=== PATIENT | female | born 1995 ===

== ENCOUNTER 2017-04-11 18:19 | Emergency (ER) | payer OTHER ==
[2017-04-11 18:28] VITALS: BMI 21.4
[2017-04-11 18:30] VITALS: RESP 18; TEMP 98.7
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
[2017-04-11] MEDS ORDERED: Sodium Chloride 0.9% 1,000 ML IV STA (18:41)
[2017-04-11 19:40] LABS: BASO # 0.02 K/mm3 (0.0-2.0); BASO % 0.2 % (0.0-3.0); EOS % 0.4 % (1.5-5.0); GRAN # 5.59 (1.4-6.5); GRAN % 69.1 % (50.0-68.0); HEMATOCRIT 42.6 % (36.0-48.0); LYMPH # 1.8 (1.2-3.4); LYMPH % 22.3 % (22.0-35.0); MEAN CELL VOLUME 92.4 fl (80.0-105.0); MEAN CORPUSCULAR HEMOGLOBIN 31.9 pg (25.0-35.0); MEAN CORPUSCULAR HGB CONC 34.5 g/dl (31.0-37.0); MEAN PLATELET VOLUME 10.4 fl (7.0-11.0); MONO # 0.7 (0.1-0.6); RED CELL DISTRIBUTION WIDTH 12.2 % (11.5-14.5); WHITE BLOOD COUNT 8.1 10^3/ul (4.5-11.0)
[2017-04-11 19:41] LABS: URINE BILIRUBIN NEGATIVE (NEGATIVE); URINE BLOOD SMALL (NEGATIVE); URINE GLUCOSE (UA) NEGATIVE (NEGATIVE); URINE KETONE 15 mg/dL (NEGATIVE); URINE LEUKOCYTE ESTERASE TRACE Leu/uL (NEGATIVE); URINE PROTEIN TRACE mg/dL (<30 mg/dL); URINE UROBILINOGEN 0.2 E.U./dL (<1 E.U./dL)
[2017-04-11 19:43] LABS: URINE APPEARANCE CLEAR (CLEAR); URINE COLOR YELLOW (YELLOW)
[2017-04-11 19:44] LABS: ALB/GLOB RATIO 1.7 (1.1-1.8); ALKALINE PHOSPHATASE 86 U/L (38-126); ALT/SGPT 31 U/L (7-56); AST/SGOT 31 U/L (14-36); BILIRUBIN,TOTAL 2.2 mg/dL (0.2-1.3); BLOOD UREA NITROGEN 15 mg/dL (7-21); CALCIUM 9.8 mg/dL (8.4-10.5); CARBON DIOXIDE 29 mmol/L (21-33); CHLORIDE 101 mmol/L (98-107); GFR AFRICAN-AMERICAN > 60; GLUCOSE,RANDOM 102 mg/dL (70-110); POTASSIUM 4.1 mmol/L (3.6-5.0); SODIUM 142 mmol/L (132-148); TOTAL PROTEIN 7.9 g/dL (5.8-8.3)
[2017-04-11] MEDS ORDERED: cefTRIAXone 1 gm 1 GM/100 ML BAG IVPB STA (19:45)
[2017-04-11 19:59] LABS: URINE BACTERIA MOD (NEG)
[2017-04-11 21:22] VITALS: BP 130/63; PULSE 61; O2SAT 99
--- NOTE | 2017-04-12 08:24 | RAD ---
HISTORY: medical clearance COMPARISON: 05/26/2016. FINDINGS: LUNGS: The lungs are well inflated and clear. PLEURA: No significant pleural effusion identified, no pneumothorax apparent. CARDIOVASCULAR: Normal. OSSEOUS STRUCTURES: No significant abnormalities. VISUALIZED UPPER ABDOMEN: Normal. OTHER FINDINGS: None. IMPRESSION: No active pulmonary disease.
== END 2017-04-11 21:10 | disposition home or self-care (01) ==
LOC: ED 18:19
DX: N39.0 Urinary tract infection, site not specified (principal); R53.83 Other fatigue; F41.9 Anxiety disorder, unspecified
CPT/HCPCS: 71010; 80053; 81001; 85025; 87086; 96365; 99285; J0696; J7040

== ENCOUNTER 2017-05-15 19:50 | Emergency (ER) | payer OTHER ==
[2017-05-15 20:04] VITALS: BMI 21.6
[2017-05-15 20:07] VITALS: BP 148/92; PULSE 98; RESP 18; TEMP 98.9; O2SAT 100
[2017-05-15 20:47] LABS: URINE BILIRUBIN NEGATIVE (NEGATIVE); URINE BLOOD NEGATIVE (NEGATIVE); URINE GLUCOSE (UA) NEGATIVE (NEGATIVE); URINE KETONE NEGATIVE (NEGATIVE); URINE LEUKOCYTE ESTERASE NEGATIVE Leu/uL (NEGATIVE); URINE PROTEIN TRACE mg/dL (<30 mg/dL)
[2017-05-15 21:02] LABS: URINE APPEARANCE CLEAR (CLEAR); URINE COLOR YELLOW (YELLOW)
[2017-05-15 21:03] LABS: URINE BACTERIA FEW (NEG); URINE RBC NEGATIVE /hpf (0-2)
[2017-05-15 21:20] LABS: BASO # 0.03 K/mm3 (0.0-2.0); BASO % 0.4 % (0.0-3.0); EOS # 0.1 (0.0-0.7); EOS % 0.7 % (1.5-5.0); GRAN # 4.96 (1.4-6.5); GRAN % 66.3 % (50.0-68.0); HEMATOCRIT 41.7 % (36.0-48.0); LYMPH # 1.9 (1.2-3.4); LYMPH % 25.5 % (22.0-35.0); MEAN CELL VOLUME 93.1 fl (80.0-105.0); MEAN CORPUSCULAR HEMOGLOBIN 31.3 pg (25.0-35.0); MEAN CORPUSCULAR HGB CONC 33.6 g/dl (31.0-37.0); MEAN PLATELET VOLUME 10.8 fl (7.0-11.0); MONO # 0.5 (0.1-0.6); MONO % 7.1 % (1.0-6.0); RED CELL DISTRIBUTION WIDTH 12.3 % (11.5-14.5); WHITE BLOOD COUNT 7.5 10^3/ul (4.5-11.0)
[2017-05-15 21:30] LABS: ALB/GLOB RATIO 1.7 (1.1-1.8); ALKALINE PHOSPHATASE 77 U/L (38-126); ALT/SGPT 41 U/L (7-56); AST/SGOT 41 U/L (14-36); BILIRUBIN,TOTAL 1.5 mg/dL (0.2-1.3); BLOOD UREA NITROGEN 10 mg/dL (7-21); CALCIUM 9.3 mg/dL (8.4-10.5); CARBON DIOXIDE 26 mmol/L (21-33); CHLORIDE 104 mmol/L (98-107); GFR AFRICAN-AMERICAN > 60; GLUCOSE,RANDOM 88 mg/dL (70-110); LIPASE 64 U/L (23-300); POTASSIUM 3.7 mmol/L (3.6-5.0); SODIUM 141 mmol/L (132-148); TOTAL PROTEIN 7.1 g/dL (5.8-8.3)
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
== END 2017-05-15 21:38 | disposition home or self-care (01) ==
LOC: ED 19:50
DX: R20.2 Paresthesia of skin (principal)

== ENCOUNTER 2017-05-26 16:13 | Inpatient (IN) | payer MEDICAID, OTHER ==
[2017-05-26 16:13] VITALS: BMI 21.6
[2017-05-26 17:25] LABS: BASO # 0.02 K/mm3 (0.0-2.0); BASO % 0.3 % (0.0-3.0); EOS # 0.1 (0.0-0.7); GRAN # 4.29 (1.4-6.5); GRAN % 68.8 % (50.0-68.0); HEMATOCRIT 38.6 % (36.0-48.0); LYMPH # 1.4 (1.2-3.4); MEAN CELL VOLUME 92.6 fl (80.0-105.0); MEAN CORPUSCULAR HEMOGLOBIN 31.2 pg (25.0-35.0); MEAN CORPUSCULAR HGB CONC 33.7 g/dl (31.0-37.0); MEAN PLATELET VOLUME 10.7 fl (7.0-11.0); MONO # 0.4 (0.1-0.6); MONO % 6.9 % (1.0-6.0); RED CELL DISTRIBUTION WIDTH 12.1 % (11.5-14.5); URINE BILIRUBIN NEGATIVE (NEGATIVE); URINE BLOOD LARGE (NEGATIVE); URINE GLUCOSE (UA) NEGATIVE (NEGATIVE); URINE KETONE NEGATIVE (NEGATIVE); URINE LEUKOCYTE ESTERASE NEGATIVE Leu/uL (NEGATIVE); URINE PROTEIN NEGATIVE mg/dL (<30 mg/dL); URINE UROBILINOGEN 0.2 E.U./dL (<1 E.U./dL); WHITE BLOOD COUNT 6.2 10^3/ul (4.5-11.0)
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
[2017-05-26 17:26] LABS: URINE APPEARANCE CLEAR (CLEAR); URINE COLOR YELLOW (YELLOW)
[2017-05-26 17:31] LABS: ALB/GLOB RATIO 1.6 (1.1-1.8); ALKALINE PHOSPHATASE 83 U/L (38-126); ALT/SGPT 29 U/L (7-56); AST/SGOT 28 U/L (14-36); BILIRUBIN,TOTAL 0.9 mg/dL (0.2-1.3); BLOOD UREA NITROGEN 11 mg/dL (7-21); CALCIUM 9.3 mg/dL (8.4-10.5); CARBON DIOXIDE 26 mmol/L (21-33); CHLORIDE 105 mmol/L (98-107); GFR AFRICAN-AMERICAN > 60; GLUCOSE,RANDOM 124 mg/dL (70-110); POTASSIUM 3.5 mmol/L (3.6-5.0); SODIUM 138 mmol/L (132-148); TOTAL PROTEIN 6.7 g/dL (5.8-8.3)
[2017-05-26 17:52] LABS: URINE BACTERIA SMALL (NEG); URINE EPITHELIAL CELLS 0 - 2 /hpf (0-5); URINE WBC 0 - 2 /hpf (0-6)
[2017-05-26] MEDS ORDERED: Potassium Chloride 20 mEq/15 ml LIQ UD PO STA (19:04)
--- NOTE | 2017-05-27 06:21 | PCM.BM ---
<Boyd Gordon - Last Filed: 05/27/17 06:18> Treatment Plan Problems - Problems identified on initial assessmt paranoid Date Initiated: 05/26/17 Time Initiated: 22:00 Assessment reference: NA Status: Active Non compliance with medications Date Initiated: 05/26/17 Assessment reference: NA Status: Active Treatment assets and liabiliti Patient Assests: ADL independent, good support system Patient Liabilities: substance abuse - Milieu Protocol Maintain good personal hygiene: daily Encourage regular showers, daily Remind patient to perform daily oral care, daily Assist patient to perform ADL's Maintain personal safety: daily Educate patient to report safety concerns to staff, daily Monitor environment for contraband/sharps Medication safety: Monitor for expected outcome, potential side effects: daily, Assess barriers to learning: daily, Assess readiness for medication education: daily Family Contact Family involvement: Family/SO is involved Family contact: Telephone contact initiated by staff Family contact name: Nick (Mother) [phone] - Goals for Treatment Patient goals for treatment: To get stabilized Discharge/Continuing Care - Education Needs Education Needs: Patient Medication, Patient Coping Skills - Discharge Discharge Criteria: Tolerates medication w/o severe side effects, Normal sleep pattern <Johnnie Tomas - Last Filed: 05/27/17 10:02> Treatment Plan Problems - Problems identified on initial assessmt Non compliance with medications Priority: 4 Agitated/Aggresive Behavior Date Initiated: 05/27/17 Time Initiated: 10:03 Status: Active Priority: 1 Ineffective Impulse Control Date Initiated: 05/27/17 Time Initiated: 10:03 Assessment reference: NA Status: Active Priority: 3 Delusions Date Initiated: 05/27/17 Time Initiated: 10:04 Assessment reference: NA Status: Active Priority: 4 Discharge/Continuing Care - Discharge Discharge Criteria: Free of paranoid thoughts, Free of agitation, Ability to care for self, No longer exhibiting s/s of withdrawal, Reduction of target symptoms <Ilda Sarmiento - Last Filed: 05/27/17 15:46> - Diagnosis (1) Schizoaffective disorder Status: Acute Interventions: 05/27/17 15:46 Psychoeducation/psychotherapy Psychopharmacology/adjustment of medications as needed/ monitoring possible side effects Evaluate pt on daily basis Compliance with medications and follow up appointments Long acting medication if pt is noncompliant with pill form Suicide and homicide risk assessment and prevention, coping strategies, safety plan Relapse prevention Reduction of symptoms Improve functional status Possible assertive community treatment Cognitive behavioral therapy Family involvement Possible social skill training as outpatient <Mariah Quevedo - Last Filed: 05/27/17 16:08> Family Contact Family involvement: Patient does not wish Family/SO involvement - Goals for Treatment Patient goals for treatment: PT requesting to be discharged.
[2017-05-27 07:55] LABS: BLOOD UREA NITROGEN 11 mg/dL (7-21); CALCIUM 9.4 mg/dL (8.4-10.5); CARBON DIOXIDE 27 mmol/L (21-33); CHLORIDE 108 mmol/L (95-110); CHOLESTEROL 110 mg/dL (130-200); GFR AFRICAN-AMERICAN > 60; GLUCOSE,RANDOM 87 mg/dL (70-110); SODIUM 140 mmol/L (132-148)
--- NOTE | 2017-05-27 08:10 | RAD ---
HISTORY: psych eval COMPARISON: 04/11/2017 FINDINGS: LUNGS: No active pulmonary disease. PLEURA: No significant pleural effusion identified, no pneumothorax apparent. CARDIOVASCULAR: Normal. OSSEOUS STRUCTURES: No significant abnormalities. VISUALIZED UPPER ABDOMEN: Normal. OTHER FINDINGS: None. IMPRESSION: No active disease. Please note: No preliminary interpretation of this examination rendered by emergency department personnel (Physician and/or PA were non-compliant in providing, as requested, preliminary report of their findings/ observations).
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
--- NOTE | 2017-05-27 22:17 | CARD ---
APPROVED REPORT EKG Measurement Heart [id number] <Conclusion> Normal sinus rhythm Rightward axis Borderline ECG
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
--- NOTE | 2017-05-29 19:27 | PCM.PYCHPN ---
Psychiatric Progress Note - Psychiatric Progress Note Patient seen today, length of contact: 30min Patient Chief Complaint: Josie Problems Identified/Issues Discussed: Chart reviewed and patient met the treatment team. Covering While patient capable of consolidated speech and thinking, appears tangential, loose with hypomania. Has some insight but also is still at risk. Diagnostic Results: Laboratory Results - last 72 hr 05/27/17 05/27/17 05/28/17 07:26 07:26 07:25 Sodium 140 Potassium 4.0 Chloride 108 Carbon Dioxide 27 Anion Gap 9 L BUN 11 Creatinine 0.7 Est GFR ( Amer) > 60 Est GFR (Non-Af Amer) > 60 Random Glucose 87 Hemoglobin A1c 5.1 Calcium 9.4 Triglycerides 56 Cholesterol 110 L LDL Cholesterol Direct 43 HDL Cholesterol 50 RPR Hepatitis A IgM Ab Negative Hep Bs Antigen Negative Hep B Core IgM Ab Negative Hepatitis C Antibody Negative HIV 1&2 Ag/Ab, 4th Gen 05/28/17 05/28/17 07:25 07:25 Sodium Potassium Chloride Carbon Dioxide Anion Gap BUN Creatinine Est GFR ( Amer) Est GFR (Non-Af Amer) Random Glucose Hemoglobin A1c Calcium Triglycerides Cholesterol LDL Cholesterol Direct HDL Cholesterol RPR Nonreactive Hepatitis A IgM Ab Hep Bs Antigen Hep B Core IgM Ab Hepatitis C Antibody HIV 1&2 Ag/Ab, 4th Gen Nonreactive DSM 5 Symptoms Update: Remains at risk. Manic. Has history of substance use and hypersexuality. Has ongoing conflict with mother. Insight marginal. Medication Change: Yes (Double Geodon dose) Medical Record Reviewed: Yes Mental Status Examination - Cognitive Function Orientation: Person, Place, Time Memory: Intact Attention: Poor Concentration: Poor Association: WNL Fund of Knowledge: WNL Decription of patient's judgement and insights: Impaired - Mood Mood: Euphoric, Other - Affect Affect: Broad, Other - Speech Speech: Pressured - Formal Thought Process Formal Thought Process: Other Psychotic Thoughts and Behaviors: Not presently - Suicidal Ideation Suicidal Ideation: No - Homicidal Ideation Homicidal Ideation: No Goal/Treatment Plan - Goal/Treatment Plan Need for Continued Stay: Remain at risks for inpatient hospitalization, Severe depression anxiety, Discharge may exacerbated symptoms, Severe functional impairment Estimated Date of D/C: 06/03/17 (we'll monitor closely)
--- NOTE | 2017-05-31 00:50 | PN ---
DATE: The patient is a 21-year-old white female who has been in a manic state. She is less manic than yesterday, but still exhibits signs of hyperactivity, and reportedly hypersexuality. She has ongoing consults with the her mother. Her insight is marginal. She is upset that I had increased her Geodon yesterday and wants me to lower the dose once again and also asking to be switched from Sonata to Ambien (I think that I have accommodated). I have cautioned or alerted the patient that her refusal to increase her dose of Geodon may prolong her hospital stay - with her being anxious to leave. She is presently on Ambien 5 mg at bedtime, Geodon 20 mg in the morning and at bedtime, Paxil 10 mg. Juice Rolle MD/ PhD
--- NOTE | 2017-05-31 19:16 | PN ---
DATE: SUBJECTIVE: The patient remains problematic in her lability including manic behavior that includes irritability and hypersexuality. Earlier, she had been insisting that I lower her medication. Presently, as she senses that we are reacting to her episodic behavioral dyscontrol, she is asking for an increase in her dose once again. I have asked for the patient to be assessed by [facility] screeners for possible involuntary hospitalization, so that the patient can be stabilized. Juice Rolle MD/ PhD
--- NOTE | 2017-06-01 16:48 | PCM.PYCHPN ---
Psychiatric Progress Note - Psychiatric Progress Note Patient seen today, length of contact: 25 min Patient Chief Complaint: "doing good" Problems Identified/Issues Discussed: I recent notes and met with patient at bedside. She remains groomed and oriented to month year location and circumstances. She seems elevated and labile , control is tenuous this morning. Reports that she's doing good and that she slept six hours last night. In general she's tolerating her medications but does report some "tingling in my hands". She denies any other new discomfort or pain. Staff notes indicate that patient has been labile with some irritability. Paranoid about medications but she takes them. Seen pacing around the unit. There were no major behavioral issues overnight. Diagnostic Results: Schizophrenia Medication Change: Yes (brisa increased) Medical Record Reviewed: Yes Mental Status Examination - Cognitive Function Orientation: Person, Place, Time Memory: Intact Attention: Poor Concentration: Poor Association: WNL Fund of Knowledge: WNL - Mood Mood: Euphoric, Other - Affect Affect: Broad, Other (labile, irritable) - Speech Speech: Pressured - Formal Thought Process Formal Thought Process: Flight of ideas, Other - Suicidal Ideation Suicidal Ideation: No - Homicidal Ideation Homicidal Ideation: No Goal/Treatment Plan - Goal/Treatment Plan Need for Continued Stay: Remain at risks for inpatient hospitalization, Severe depression anxiety, Discharge may exacerbated symptoms, Severe functional impairment Progress Toward Problem(s) and Goals/Treatment Plan: * c/w current tx and plan * Note: patient retracted 48 hour letter * Vitals reviewed and noted below: Selected Entries 05/30/17 05/30/17 07:18 16:00 Temperature 97.8 F Pulse Rate 66 72 Respiratory 20 Rate Blood Pressure 118/66 111/81 Estimated Date of D/C: 06/03/17 (we'll monitor closely)
--- NOTE | 2017-06-02 09:41 | PCM.PYCHPN ---
Psychiatric Progress Note - Psychiatric Progress Note Patient seen today, length of contact: 25 min Patient Chief Complaint: "doing fine" Problems Identified/Issues Discussed: I recent notes and met with patient at bedside. She remains groomed and oriented to month, year and location. Patient has been difficult on the unit. Staff needed to medicate her with Geodon 20 mg IM and Ativan 0.5 mg IM yesterday morning because she was loud, combative (kicking at staff) and paranoid. Patient could not be verbally redirected at the time and refused to take po prn. Patient was also seen dancing in the hallways and clogged her toilet with tissue paper. She seems elevated and labile but in tenuous control this morning. Reports that she's "doing fine". [place] nauseated and sedated after her injection yesterday however this has improved. She denies other new discomfort or pain. Diagnostic Results: Schizophrenia Medication Change: Yes (geodon increased) Medical Record Reviewed: Yes Mental Status Examination - Cognitive Function Orientation: Person, Place, Time Memory: Intact Attention: Poor Concentration: Poor Association: WNL Fund of Knowledge: WNL - Mood Mood: Euphoric, Other ("doing fine") - Affect Affect: Broad, Other (labile, irritable) - Speech Speech: Pressured - Formal Thought Process Formal Thought Process: Flight of ideas, Other - Suicidal Ideation Suicidal Ideation: No - Homicidal Ideation Homicidal Ideation: No Goal/Treatment Plan - Goal/Treatment Plan Need for Continued Stay: Remain at risks for inpatient hospitalization, Severe depression anxiety, Discharge may exacerbated symptoms, Severe functional impairment Progress Toward Problem(s) and Goals/Treatment Plan: * c/w current tx and plan * Note: patient retracted 48 hour letter * No new weekend labs * Vitals reviewed and noted below: Selected Entries 06/01/17 06/01/17 06:56 16:00 Temperature 98.4 F Pulse Rate 85 87 Respiratory 18 Rate Blood Pressure 120/79 101/61 O2 Sat by Pulse 99 Oximetry Estimated Date of D/C: 06/03/17 (we'll monitor closely)
[2017-06-03 07:03] VITALS: RESP 20; TEMP 98; O2SAT 98
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
--- NOTE | 2017-06-03 16:29 | PCM.BM ---
Treatment Plan Problems - Problems identified on initial assessmt paranoid Date Initiated: 05/26/17 Time Initiated: 22:00 Assessment reference: NA Status: Active Non compliance with medications Date Initiated: 05/26/17 Assessment reference: NA Status: Active Priority: 4 Agitated/Aggresive Behavior Date Initiated: 05/27/17 Time Initiated: 10:03 Status: Active Priority: 1 Ineffective Impulse Control Date Initiated: 05/27/17 Time Initiated: 10:03 Assessment reference: NA Status: Active Priority: 3 Delusions Date Initiated: 05/27/17 Time Initiated: 10:04 Assessment reference: NA Status: Active Priority: 4 Treatment assets and liabiliti Patient Assests: ADL independent, good support system Patient Liabilities: substance abuse - Milieu Protocol Maintain good personal hygiene: daily Encourage regular showers, daily Remind patient to perform daily oral care, daily Assist patient to perform ADL's Maintain personal safety: daily Educate patient to report safety concerns to staff, daily Monitor environment for contraband/sharps Medication safety: Monitor for expected outcome, potential side effects: daily, Assess barriers to learning: daily, Assess readiness for medication education: daily Milieu Narrative: * c/w current tx and plan * Note: patient retracted 48 hour letter * No new weekend labs * Vitals reviewed and noted below: Selected Entries 06/01/17 06/01/17 06:56 16:00 Temperature 98.4 F Pulse Rate 85 87 Respiratory 18 Rate Blood Pressure 120/79 101/61 O2 Sat by Pulse 99 Oximetry Family Contact Family involvement: Patient does not wish Family/SO involvement - Goals for Treatment Patient goals for treatment: PT requesting to be discharged. Discharge/Continuing Care - Education Needs Education Needs: Patient Medication, Patient Coping Skills - Discharge Discharge Criteria: Free of paranoid thoughts, Free of agitation, Ability to care for self, No longer exhibiting s/s of withdrawal, Reduction of target symptoms - Treatment Team Participation Patient/Family/SO Statement: * c/w current tx and plan * Note: patient retracted 48 hour letter * No new weekend labs * Vitals reviewed and noted below: Selected Entries 06/01/17 06/01/17 06:56 16:00 Temperature 98.4 F Pulse Rate 85 87 Respiratory 18 Rate Blood Pressure 120/79 101/61 O2 Sat by Pulse 99 Oximetry Treatment Plan Review - Problem paranoid Date Initiated: 06/03/17 Time Initiated: 13:00 Progress toward outcomes: unchanged Non compliance with medications Date Initiated: 06/03/17 (CONTINUE TO CHOOSE WHAT MEDICATION SHE CAN TAKE) Progress toward outcomes: unchanged Agitated/Aggresive Behavior Date Initiated: 06/03/17 (EASILY GETS EXCITABLE AND ANGRY) Time Initiated: 13:00 Progress toward outcomes: unchanged Ineffective Impulse Control Date Initiated: 06/03/17 Time Initiated: 13:00 Progress toward outcomes: unchanged (CONTINUE WITH HER IMPULSIVE BEHAVIOR AND SEXUAL PREOCCUPATION) Delusions Date Initiated: 06/03/17 Time Initiated: 13:00 Progress toward outcomes: unchanged (CONTINUE TO EXPRESS HER DELUSION TOWARDS OTHER PT AND STAFF)
[2017-06-03] MEDS: OLANZapine 5 mg Disintegrating Tab PO SCH (19:08)
[2017-06-04] MEDS: OLANZapine 5 mg Disintegrating Tab PO SCH ×2 (09:32→17:12)
--- NOTE | 2017-06-04 09:47 | PCM.BM ---
Treatment Plan Problems - Problems identified on initial assessmt paranoid Date Initiated: 05/26/17 Time Initiated: 22:00 Assessment reference: NA Status: Active Non compliance with medications Date Initiated: 05/26/17 Assessment reference: NA Status: Active Priority: 4 Agitated/Aggresive Behavior Date Initiated: 05/27/17 Time Initiated: 10:03 Status: Active Priority: 1 Ineffective Impulse Control Date Initiated: 05/27/17 Time Initiated: 10:03 Assessment reference: NA Status: Active Priority: 3 Delusions Date Initiated: 05/27/17 Time Initiated: 10:04 Assessment reference: NA Status: Active Priority: 4 Treatment assets and liabiliti Patient Assests: ADL independent, good support system Patient Liabilities: substance abuse - Diagnosis (1) Schizoaffective disorder Status: Acute Interventions: 05/27/17 15:46 pt is not doing well all meds adjusted pt is on 1:1 Psychoeducation/psychotherapy Psychopharmacology/adjustment of medications as needed/ monitoring possible side effects Evaluate pt on daily basis Compliance with medications and follow up appointments Long acting medication if pt is noncompliant with pill form Suicide and homicide risk assessment and prevention, coping strategies, safety plan Relapse prevention Reduction of symptoms Improve functional status Possible assertive community treatment Cognitive behavioral therapy - Milieu Protocol Maintain good personal hygiene: daily Encourage regular showers, daily Remind patient to perform daily oral care, daily Assist patient to perform ADL's Maintain personal safety: daily Educate patient to report safety concerns to staff, daily Monitor environment for contraband/sharps Medication safety: Monitor for expected outcome, potential side effects: daily, Assess barriers to learning: daily, Assess readiness for medication education: daily Milieu Narrative: * c/w current tx and plan * Note: patient retracted 48 hour letter * No new weekend labs * Vitals reviewed and noted below: Selected Entries 06/01/17 06/01/17 06:56 16:00 Temperature 98.4 F Pulse Rate 85 87 Respiratory 18 Rate Blood Pressure 120/79 101/61 O2 Sat by Pulse 99 Oximetry Family Contact Family involvement: Patient does not wish Family/SO involvement - Goals for Treatment Patient goals for treatment: PT requesting to be discharged. Discharge/Continuing Care - Education Needs Education Needs: Patient Medication, Patient Coping Skills - Discharge Discharge Criteria: Free of paranoid thoughts, Free of agitation, Ability to care for self, No longer exhibiting s/s of withdrawal, Reduction of target symptoms - Treatment Team Participation Patient/Family/SO Statement: * c/w current tx and plan * Note: patient retracted 48 hour letter * No new weekend labs * Vitals reviewed and noted below: Selected Entries 06/01/17 06/01/17 06:56 16:00 Temperature 98.4 F Pulse Rate 85 87 Respiratory 18 Rate Blood Pressure 120/79 101/61 O2 Sat by Pulse 99 Oximetry Treatment Plan Review - Problem paranoid Time Initiated: 22:00 Agitated/Aggresive Behavior Time Initiated: 10:03 Ineffective Impulse Control Time Initiated: 10:03 Delusions Time Initiated: 10:04
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
[2017-06-04 16:00] LABS: BASO # 0.03 K/mm3 (0.0-2.0); BASO % 0.4 % (0.0-3.0); EOS # 0.1 (0.0-0.7); EOS % 1.5 % (1.5-5.0); GRAN # 4.6 (1.4-6.5); GRAN % 62.2 % (50.0-68.0); HEMATOCRIT 41.1 % (36.0-48.0); LYMPH # 2.1 (1.2-3.4); LYMPH % 28.7 % (22.0-35.0); MEAN CELL VOLUME 92.4 fl (80.0-105.0); MEAN CORPUSCULAR HGB CONC 33.6 g/dl (31.0-37.0); MEAN PLATELET VOLUME 10.7 fl (7.0-11.0); MONO # 0.5 (0.1-0.6); MONO % 7.2 % (1.0-6.0); RED CELL DISTRIBUTION WIDTH 11.8 % (11.5-14.5); WHITE BLOOD COUNT 7.4 10^3/ul (4.5-11.0)
[2017-06-04 16:05] LABS: ALB/GLOB RATIO 1.7 (1.1-1.8); ALKALINE PHOSPHATASE 68 U/L (38-126); ALT/SGPT 30 U/L (7-56); AST/SGOT 33 U/L (14-36); BILIRUBIN,TOTAL 1.5 mg/dL (0.2-1.3); BLOOD UREA NITROGEN 14 mg/dL (7-21); CALCIUM 9.3 mg/dL (8.4-10.5); CARBON DIOXIDE 29 mmol/L (21-33); CHLORIDE 103 mmol/L (98-107); GFR AFRICAN-AMERICAN > 60; GLUCOSE,RANDOM 100 mg/dL (70-110); POTASSIUM 4.1 mmol/L (3.6-5.0); SODIUM 141 mmol/L (132-148); TOTAL PROTEIN 6.9 g/dL (5.8-8.3)
[2017-06-04 16:49] VITALS: BP 114/66; PULSE 86
[2017-06-04] MEDS ORDERED: OLANZapine 5 mg Disintegrating Tab PO SCH (22:00)
[2017-06-05] MEDS: OLANZapine 5 mg Disintegrating Tab PO SCH (10:03)
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
== END 2017-06-05 15:45 | DRG 885 ==
LOC: ED 16:13 → ERH 19:01 → PSYC 20:08
PROVIDERS: ADMIT Psychologist; ATTEND Psychiatry & Neurology Psychiatry
DX: F25.9 Schizoaffective disorder, unspecified (principal); F22 Delusional disorders; F31.9 Bipolar disorder, unspecified; F41.9 Anxiety disorder, unspecified; Z82.3 Family history of stroke; Z81.4 Family history of other substance abuse and dependence; F17.210 Nicotine dependence, cigarettes, uncomplicated; Z79.899 Other long term (current) drug therapy; Z81.8 Family history of other mental and behavioral disorders; Z87.440 Personal history of urinary (tract) infections; Z91.14 Patient's other noncompliance with medication regimen

== ENCOUNTER 2017-07-11 22:15 | Emergency (ER) | payer MEDICAID, OTHER ==
[2017-07-11 22:16] VITALS: BMI 21.6
[2017-07-11 22:51] VITALS: O2SAT 100
[2017-07-11] MEDS ORDERED: TDAP Vaccine 0.5 mL Syr IM ONE (23:01)
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
[2017-07-12 00:12] VITALS: BP 125/85; PULSE 70; RESP 18; TEMP 98.7
== END 2017-07-12 00:11 | disposition home or self-care (01) ==
LOC: ED 22:15
DX: T14.8XXA Other injury of unspecified body region, initial encounter (principal); Y04.0XXA Assault by unarmed brawl or fight, initial encounter; Z23 Encounter for immunization; F17.210 Nicotine dependence, cigarettes, uncomplicated

== ENCOUNTER 2018-05-16 08:33 | Emergency (ER) | payer MEDICAID, OTHER ==
[2018-05-16 08:36] VITALS: BMI 21.6
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
[2018-05-16 10:28] LABS: BASO # 0.04 K/mm3 (0.0-2.0); BASO % 0.3 % (0.0-3.0); EOS # 0.1 (0.0-0.7); EOS % 0.6 % (1.5-5.0); GRAN # 10.65 (1.4-6.5); HEMOGLOBIN 16.7 g/dL (12.0-16.0); LYMPH # 2.1 (1.2-3.4); MEAN CELL VOLUME 93.4 fl (80.0-105.0); MEAN CORPUSCULAR HEMOGLOBIN 31.7 pg (25.0-35.0); MEAN CORPUSCULAR HGB CONC 33.9 g/dl (31.0-37.0); MEAN PLATELET VOLUME 10.7 fl (7.0-11.0); MONO # 0.8 (0.1-0.6); MONO % 6.1 % (1.0-6.0); RBC 5.27 10^6/uL (3.5-6.1); RED CELL DISTRIBUTION WIDTH 12.9 % (11.5-14.5); WHITE BLOOD COUNT 13.7 10^3/uL (4.5-11.0)
[2018-05-16 10:33] LABS: ALB/GLOB RATIO 1.5 (1.1-1.8); ALBUMIN 4.9 g/dL (3.0-4.8); ALT/SGPT 26 U/L (7-56); AST/SGOT 30 U/L (14-36); BLOOD UREA NITROGEN 15 mg/dL (7-21); CALCIUM 9.9 mg/dL (8.4-10.5); GFR NON-AFRICAN AMERICAN > 60
--- NOTE | 2018-05-16 11:34 | CARD ---
APPROVED REPORT Date of service: 05/16/2018 EKG Measurement Heart [id number] <Conclusion> Normal sinus rhythm RVCD Normal ECG No change
[2018-05-16 11:53] LABS: PH,URINE 5.5 (4.7-8.0); URINE BILIRUBIN SMALL (NEGATIVE); URINE BLOOD SMALL (NEGATIVE); URINE GLUCOSE (UA) NEGATIVE (NEGATIVE); URINE LEUKOCYTE ESTERASE NEGATIVE Leu/uL (NEGATIVE); URINE PROTEIN 30 mg/dL (<30 mg/dL); URINE UROBILINOGEN 0.2 E.U./dL (<1 E.U./dL)
[2018-05-16 11:55] LABS: URINE APPEARANCE CLEAR (CLEAR); URINE COLOR YELLOW (YELLOW)
[2018-05-16 11:57] LABS: BARBITURATES, UR NEGATIVE (NEGATIVE); BENZODIAZEPINES, UR NEGATIVE (NEGATIVE); OPIATES, UR NEGATIVE (NEGATIVE); PHENCYCLIDINE, UR NEGATIVE (NEGATIVE)
[2018-05-16 12:01] LABS: URINE AMORPHOUS SEDIMENT FEW; URINE BACTERIA MANY (NEG); URINE WBC 0 - 2 /hpf (0-6)
[2018-05-16 12:25] VITALS: BP 129/71; RESP 18
[2018-05-16 15:20] VITALS: PULSE 70; TEMP 98; O2SAT 99
== END 2018-05-16 15:20 | disposition short-term general hospital (02) ==
LOC: ED 08:33
DX: F32.9 Major depressive disorder, single episode, unspecified (principal); F41.9 Anxiety disorder, unspecified; T76.21XA Adult sexual abuse, suspected, initial encounter
CPT/HCPCS: 80053; 81001; 83735; 85025; 90791; 93005; 99283; G0480

== ENCOUNTER 2018-12-06 13:12 | Emergency (ER) | payer SELFPAY ==
[2018-12-06 13:13] VITALS: BMI 21.6
[2018-12-06 13:31] VITALS: BP 124/81; PULSE 85; RESP 18; TEMP 98.4; O2SAT 99
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
[2018-12-06 14:26] LABS: URINE BILIRUBIN NEGATIVE (NEGATIVE); URINE BLOOD NEGATIVE (NEGATIVE); URINE GLUCOSE (UA) NEGATIVE (NEGATIVE); URINE LEUKOCYTE ESTERASE NEGATIVE Leu/uL (NEGATIVE); URINE PROTEIN TRACE mg/dL (<30 mg/dL); URINE UROBILINOGEN 0.2 E.U./dL (<1 E.U./dL)
[2018-12-06 14:33] LABS: URINE APPEARANCE SL CLOUDY (CLEAR); URINE COLOR YELLOW (YELLOW)
[2018-12-06 14:35] LABS: HCG,QUALITATIVE URINE NEGATIVE (NEGATIVE)
[2018-12-06 14:41] LABS: URINE BACTERIA MOD /hpf; URINE RBC 0 - 2 /hpf (0-2); URINE WBC 0 - 2 /hpf (0-6)
== END 2018-12-06 14:35 | disposition left against medical advice (07) ==
LOC: ED 13:12
DX: R11.0 Nausea (principal); F17.210 Nicotine dependence, cigarettes, uncomplicated